=== PATIENT | female | born 1980 | race Caucasian/White ===

== ENCOUNTER 2017-12-29 16:05 | Emergency (ER) | payer OTHER, BC ==
[~2017-12-29] VITALS: Ht 157.5 cm; Wt 96.1 kg
[~2017-12-29 16:05] MED LIST: IBUPROFEN600 MG PO; ULTRAM50 MG PO
[2017-12-29] MEDS ORDERED: MOTRIN800 MG PO (17:26)
[2017-12-29] MEDS ORDERED: FLEXERIL10 MG PO (17:26)
[2017-12-29] MEDS ORDERED: PREDNISONE20 MG PO (17:26)
[2017-12-29 17:35] VITALS: BP 127/91
== END 2017-12-29 17:35 | disposition home or self-care (01) ==
LOC: EME 16:05
DX: S93.402A Sprain of unspecified ligament of left ankle, initial encounter (principal); V49.40XA Driver injured in collision with unspecified motor vehicles in traffic accident, initial encounter; Y92.410 Unspecified street and highway as the place of occurrence of the external cause; F17.200 Nicotine dependence, unspecified, uncomplicated
CPT/HCPCS: 73610; 99281; 99283; J7512